=== PATIENT | female | born 2000 | race Caucasian/White ===

== ENCOUNTER → 2020-02-05 09:47 | Outpatient (BNVA) | payer OTHER, SELFPAY | PROVIDERS: Family Provider Family Medicine; PCP Family Medicine; Visit Provider Nurse Practitioner Family | DX: Z11.59 Encounter for screening for other viral diseases (principal); Z20.828 Contact with and (suspected) exposure to other viral communicable diseases; J06.9 Acute upper respiratory infection, unspecified | CPT/HCPCS: 87635 ==

== ENCOUNTER → 2020-06-11 17:56 | Outpatient (BNVA) | payer OTHER, SELFPAY | PROVIDERS: Family Provider Family Medicine; PCP Family Medicine; Visit Provider Nurse Practitioner Family | DX: N39.0 Urinary tract infection, site not specified (principal) | CPT/HCPCS: 81000 ==

== ENCOUNTER 2020-06-21 23:33 | Emergency (ER) | payer OTHER, SELFPAY ==
[2020-06-22 00:06] VITALS: BP 153/99; PULSE 106; RESP 18; TEMP 36.9; O2SAT 99; BMI 26.5
--- NOTE | 2020-06-22 00:16 | ED_ITS ---
HPI - General Adult General: Chief complaint: General Medical Stated complaint: lower back pain Time Seen by Provider: 06/22/20 00:15 Source: patient Mode of arrival: ambulatory Limitations: no limitations History of Present Illness: HPI narrative: Patient was seen Monday at urgent care and was told that she may have a kidney stone. Patient had left flank pain. Patient denied any imaging at that time. Patient was given an injection of Toradol with relief of pain. Patient appears well. Patient appears in moderate pain. Patient takes he takes control routinely. Patient denies any vaginal discharge or abnormal bleeding. Patient's last menstrual cycle was 1 week ago finishing 2 days ago. Review of Systems General: Reports: 10 or more systems reviewed and unremarkable except in HPI and below GI: Reports: abdominal pain PFSH ED PFSH: Social History (Updated 06/11/20 @ 17:46 by Court Perez LPN) Smoking and tobacco status: never smoked Female Reproductive History: Date of last menstrual period: 06/20/20 Physical Exam Const: COMMON NORMALS: no acute distress and patient oriented x3 GENERAL APPEARANCE: cooperative HENMT: COMMON NORMALS: normocephalic, TM's normal bilaterally and Normal external nose present HEAD & SCALP: normal to inspection and normocephalic NOSE: Normal external nose present TYMPANIC MEMBRANE: TM's normal bilaterally MOUTH: Normal oral and palatal mucosa present THROAT: posterior oropharynx normal Eye: GENERAL EYE: appearance normal, both eyes and all related structures Neck/C-Spine: COMMON NORMALS: full ROM Lymph: LYMPHATIC: no lymphadenopathy noted Chest: COMMONS NORMALS: normal inspection of the chest Resp: COMMON NORMALS: normal respiratory effort EFFORT & INSPECTION: Yes able to speak in complete sentences Cardio: COMMON NORMALS: regular rate and regular rhythm RATE: regular rate RHYTHM: regular rhythm GI: PALPATION: Yes Tenderness to palpation present (GI) Details: LLQ Back/Pelvis: COMMON NORMALS: thoracic and lumbar spine normal to inspection GENERAL BACK: Yes CVA tenderness CVA tenderness: left Extremity: COMMON NORMALS: normal to inspection Neuro: COMMON NORMALS: patient oriented x3 and moves all extremities Psych: COMMON NORMALS: mental status grossly normal and cooperative Skin: COMMON NORMALS: no rashes or lesions noted GENERAL SKIN EXAM: no rashes or lesions noted Course Vital Signs: Vital signs: Vital Signs Temperature 98.5 F 06/22/20 00:06 Pulse Rate 91 06/22/20 02:01 Respiratory Rate 17 06/22/20 02:01 Blood Pressure 131/80 06/22/20 02:01 Pulse Oximetry 96 06/22/20 02:01 MDM - General Adult MDM Narrative: Medical decision making narrative: Patient comes in today for complaints of left flank pain radiating into the groin. On exam abdomen was soft with tenderness noted to the left lower quadrant. Patient had positive CVA tenderness. Vital signs were normal. Except for some elevation in blood pressure. Differential diagnosis includes but not limited to constipation, pyelonephritis, renal calculi. CBC and CMP were unremarkable. Urinalysis had blood in it. CT of the abdomen pelvis noted a 3 to 4 mm renal calculi in the distal left ureter. Reviewed exam with patient recommendations for treatment and follow-up. Patient was given a dose of Toradol in the ER with resolution of discomfort. Patient will be continued on medications for pain and ureter relaxation. Patient was recommended to follow-up with Dr. Ambrosio, urologist, for further treatment of renal calculi. Patient reported understanding and agreed to plan. Lab Data: Labs: Lab Results 06/22/20 06/22/20 06/22/20 Range/Units 00:26 00:26 00:26 WBC 10.1 (4.5-13.0) 10^3/ uL RBC 4.34 (4.1-5.3) 10^6/u L Hgb 13.3 (11.5-15.3) g/dL Hct 40.2 (37.0-47.0) % MCV 92.6 (81-99) fL MCH 30.6 (28.0-34.0) pg MCHC 33.1 (30.0-36.0) g/dL RDW 12.8 (12.1-15.1) % Plt Count 397 (130-400) 10^3/c mm MPV 9.2 (7.4-10.4) fL Neut % (Auto) 65.4 % Lymph % (Auto) 26.6 % [place] % (Auto) 5.2 % Eos % (Auto) 2.0 % Baso % (Auto) 0.4 % Neut # (Auto) 6.62 (1.8-8.0) 10^3/u L Lymph # (Auto) 2.7 (1.5-6.5) 10^3/u L [place] # (Auto) 0.5 (0.2-0.9) 10^3/u L Eos # (Auto) 0.2 (0.0-0.8) 10^3/u L Baso # (Auto) 0.0 (0.0-0.1) 10^3/u L Nucleated RBC % (a uto) 0 % Nucleated RBCs # 0.0 /100WBC Sodium 139 (136-145) mmol/L Potassium 3.7 (3.5-5.1) mmol/L Chloride 105 (98-107) mmol/L Carbon Dioxide 23 (22-29) mmol/L Anion Gap 14.7 (5-19) BUN 14 (6-20) mg/dL Creatinine 0.8 (0.5-0.9) mg/dL GFR Calculation 91.4 (90-130) mL/min Glucose 105 (65-115) mg/dL Calculated Osmolal ity 289 (285-295) mOsm/k g Calcium 9.3 (8.5-10.5) mg/dL Total Bilirubin 0.3 (0.15-1.2) mg/dL AST 16 (0-32) U/L ALT 15 (0-33) U/L Alkaline Phosphata se 85 (35-105) IU/L Total Protein 7.5 (6.6-8.7) g/dL Albumin 4.4 (3.5-5.2) g/dL Globulin 3.1 (1.3-4.6) g/dL HCG, Qual Negative (Negative) Urine Color (Yellow) Urine Appearance (CLEAR) Urine pH (5-7) Ur Specific Gravit y (1.005-1.030) Urine Protein (Negative) Urine Glucose (UA) (Normal) Urine Ketones (Negative) Urine Blood (Negative) Urine Nitrate (Negative) Urine Bilirubin (Negative) Urine Urobilinogen (Negative) mg/dL Ur Leukocyte Janene ase (Negative) Urine RBC (0-2) /hpf Urine WBC (0-5) /hpf Ur Squamous Epith Cells (0-5) /hpf Amorphous Sediment Urine Bacteria (NONE) /hpf 06/22/20 Range/Units 00:26 WBC (4.5-13.0) 10^3/ uL RBC (4.1-5.3) 10^6/u L Hgb (11.5-15.3) g/dL Hct (37.0-47.0) % MCV (81-99) fL MCH (28.0-34.0) pg MCHC (30.0-36.0) g/dL RDW (12.1-15.1) % Plt Count (130-400) 10^3/c mm MPV (7.4-10.4) fL Neut % (Auto) % Lymph % (Auto) % [place] % (Auto) % Eos % (Auto) % Baso % (Auto) % Neut # (Auto) (1.8-8.0) 10^3/u L Lymph # (Auto) (1.5-6.5) 10^3/u L [place] # (Auto) (0.2-0.9) 10^3/u L Eos # (Auto) (0.0-0.8) 10^3/u L Baso # (Auto) (0.0-0.1) 10^3/u L Nucleated RBC % (a uto) % Nucleated RBCs # /100WBC Sodium (136-145) mmol/L Potassium (3.5-5.1) mmol/L Chloride (98-107) mmol/L Carbon Dioxide (22-29) mmol/L Anion Gap (5-19) BUN (6-20) mg/dL Creatinine (0.5-0.9) mg/dL GFR Calculation (90-130) mL/min Glucose (65-115) mg/dL Calculated Osmolal ity (285-295) mOsm/k g Calcium (8.5-10.5) mg/dL Total Bilirubin (0.15-1.2) mg/dL AST (0-32) U/L ALT (0-33) U/L Alkaline Phosphata se (35-105) IU/L Total Protein (6.6-8.7) g/dL Albumin (3.5-5.2) g/dL Globulin (1.3-4.6) g/dL HCG, Qual (Negative) Urine Color Yellow (Yellow) Urine Appearance Clear (CLEAR) Urine pH 5 (5-7) Ur Specific Gravit y 1.020 (1.005-1.030) Urine Protein Neg (Negative) Urine Glucose (UA) Norm (Normal) Urine Ketones Negative (Negative) Urine Blood 3+ H (Negative) Urine Nitrate Negative (Negative) Urine Bilirubin Neg (Negative) Urine Urobilinogen Norm (Negative) mg/dL Ur Leukocyte Janene ase Negative (Negative) Urine RBC 15-25 H (0-2) /hpf Urine WBC 0-4 H (0-5) /hpf Ur Squamous Epith Cells 10-15 H (0-5) /hpf Amorphous Sediment Not Reportable Urine Bacteria Trace (NONE) /hpf Discharge Plan Discharge Patient Disposition: Home Clinical Impression: Ureter, calculus Condition: Stable Prescriptions: New hydrocodone-acetaminophen 5-325 mg tablet 1 tab PO Q6H PRN (Reason: pain, moderate) Qty: 14 RF: 0 tamsulosin 0.4 mg capsule 0.4 mg PO DAILY Qty: 10 RF: 0 Discharge Orders: Discharge ED (Routine); Ordered 06/22/20 Ordered By: Ede Santo Referrals: Mainor Abad DO [Primary Care Provider] - Discharge Diet: Usual diet Discharge Activity: Increase activity as tolerated Patient Instructions: Kidney Stones (ED), Opioid Safety Activity Restrictions/Additional Instructions: Strain urine. Take medication as directed for pain and discomfort. Use tamsulosin daily to help relax the ureter so well passes stone. Use hydrocodone and acetaminophen for severe to moderate pain. You can use acetaminophen and ibuprofen for much milder pain. Maintain activity as tolerated. Return to the emergency department for new concerns. Monitor for high fever or uncontrolled pain. Follow-up with urologist for further treatment of kidney stones. Follow- up with primary care as needed. Coding Level of Care Code ED [employer] Technician for Lucy [employer] Exam Comprehensive
--- NOTE | 2020-06-22 00:31 | CTR_ITS ---
PROCEDURE INFORMATION: Exam: CT Abdomen And Pelvis Without Contrast Exam date and time: 06/22/2020 12:41 AM Age: 20 years old Clinical indication: Abdominal pain; Left; Patient HX: C/O L flank pain; Additional info: Left flank pain radiating into groin, TECHNIQUE: Imaging protocol: Computed tomography of the abdomen and pelvis without contrast. Radiation optimization: All CT scans at this facility use at least one of these dose optimization techniques: automated exposure control; mA and/or kV adjustment per patient size (includes targeted exams where dose is matched to clinical indication); or iterative reconstruction. COMPARISON: No relevant prior studies available. RADIATION DOSE METRICS: Total DLP (mGy-cm): 898.18 FINDINGS: Lungs: The lung bases are clear. Liver: Unremarkable. Gallbladder and bile ducts: The gallbladder is contracted. No visible gallstones by CT. No biliary tree dilation. Pancreas: Unremarkable. Spleen: Unremarkable. Adrenal glands: Unremarkable. Kidneys and ureters: Several left intrarenal calculi, largest about 4 cm. Mild left hydronephrosis and hydroureter. There is a 3-4 mm distal left ureteral calculus, about 1 cm from the UVJ. Suspect 2 or 3 very small right intrarenal calculi. No right hydronephrosis or visible right ureteral calculus. Stomach and bowel: There are no CT findings to strongly suggest diverticulitis. Appendix: The appendix is identified, and there are no suspicious findings for appendicitis. No pericecal inflammatory changes are seen. Small amount of high attenuation material in the distal appendix may represent residual contrast from a prior exam, or possibly an appendicolith. Intraperitoneal space: No free air, ascites, or bowel distention. Vasculature: No evidence for abdominal aortic aneurysm. Lymph nodes: No retroperitoneal adenopathy. Urinary bladder: Suspect mild to moderate diffuse urinary bladder wall thickening. While nonspecific, this could indicate evidence for cystitis. Please correlate clinically. Reproductive: Essentially unremarkable for age. Bones/joints: No significant acute finding. Soft tissues: No significant acute finding. CT/CT kidney stone [id number] IMPRESSION: 1. 3-4 mm distal left ureteral calculus, see above details. 2. Mild left hydronephrosis and hydroureter. 3. Bilateral intrarenal calculi. 4. Suspected urinary bladder wall thickening, see above. 5. Other findings discussed above. Radiation Dose CTDIVOL = (mGy): DLP = 898.18 (mGy-cm)
[2020-06-22 00:34] LABS: Basophils % 0.4 %; Eosinophils # 0.2 10^3/uL (0.0-0.8); Hematocrit 40.2 % (37.0-47.0); Hemoglobin 13.3 g/dL (11.5-15.3); Lymphocytes # 2.7 10^3/uL (1.5-6.5); Lymphocytes % 26.6 %; Mean Corpuscular HGB Conc 33.1 g/dL (30.0-36.0); Mean Corpuscular Hemoglobin 30.6 pg (28.0-34.0); Mean Corpuscular Volume 92.6 fL (81-99); Mean Platelet Volume 9.2 fL (7.4-10.4); Monocytes # 0.5 10^3/uL (0.2-0.9); Monocytes % 5.2 %; Neutrophils # 6.62 10^3/uL (1.8-8.0); Neutrophils % 65.4 %; Nucleated Red Blood Cells % 0 %; Platelet Count 397 10^3/cmm (130-400); Red Blood Count 4.34 10^6/uL (4.1-5.3); Red Cell Distribution Width 12.8 % (12.1-15.1); White Blood Count 10.1 10^3/uL (4.5-13.0)
[2020-06-22] MEDS: ondansetron 2 mg/ML SDV 2 mL 4 MG IVP (00:43)
[2020-06-22] MEDS: ketorolac 30 mg/mL INJ 15 MG IVP (00:44)
[2020-06-22 00:47] VITALS: BP 131/86; PULSE 92; RESP 18; O2SAT 97
[2020-06-22 01:00] LABS: HCG, Serum Qual Negative (Negative)
[2020-06-22 01:11] LABS: Alanine Aminotransferase 15 U/L (0-33); Albumin Level 4.4 g/dL (3.5-5.2); Alkaline Phosphatase 85 IU/L (35-105); Anion Gap 14.7 (5-19); Aspartate Amino Transferase 16 U/L (0-32); Blood Urea Nitrogen 14 mg/dL (6-20); Calcium 9.3 mg/dL (8.5-10.5); Carbon Dioxide 23 mmol/L (22-29); Chloride 105 mmol/L (98-107); Globulin 3.1 g/dL (1.3-4.6); Glomerular Filtration Rate 91.4 mL/min (90-130); Glucose 105 mg/dL (65-115); Osmolality Calculated 289 mOsm/kg (285-295); Potassium 3.7 mmol/L (3.5-5.1); Sodium 139 mmol/L (136-145); Total Bilirubin 0.3 mg/dL (0.15-1.2); Total Protein 7.5 g/dL (6.6-8.7)
[2020-06-22 01:29] VITALS: BP 124/94; PULSE 91; RESP 18; O2SAT 95
[2020-06-22 01:49] LABS: Add Urine Microscopic? YES; Bilirubin Urine Neg (Negative); Blood Urine 3+ (Negative); Glucose Urine UA Norm (Normal); Ketones Urine Negative (Negative); Leukocyte Esterase Urine Negative (Negative); Nitrate Urine Negative (Negative); Protein Urine Neg (Negative); Urine Appearance Clear (CLEAR); Urine Color Yellow (Yellow); Urobilinogen Urine Norm (Negative); pH Urine 5 (5-7)
[2020-06-22 01:51] LABS: Add Urine Culture? No; Bacteria Urine TRACE /hpf; RBC Urine 15-25 /hpf (0-2); WBC Urine 0-4 /hpf (0-5)
[2020-06-22 02:01] VITALS: BP 131/80; PULSE 91; RESP 17; O2SAT 96
--- NOTE | 2020-06-22 09:56 | DCPLANNER ---
lead case manager had message to schedule a follow up appointment for patient with Dr. Ambrosio. lead case manager called the office of Dr. Ambrosio, spoke with Shalini, gave clinic patients information. lead case manager was told that patients information would be printed and reviewed. Clinic will call patient with appointment information.
--- NOTE | 2020-06-24 07:51 | DCPLANNER ---
Patient had a follow up appointment scheduled for 06.23.[address] Ambrosio - patient did attend appointment.
== END 2020-06-22 02:09 | disposition home or self-care (01) ==
PROVIDERS: Emergency Provider Nurse Practitioner Family; PCP Family Medicine
DX: N20.1 Calculus of ureter (principal)
CPT/HCPCS: 74176; 80053; 81001; 84703; 85025; 96374; 96375; 99283; J1885; J2405

== ENCOUNTER 2020-06-23 14:53 | Outpatient (CLI) | payer OTHER, SELFPAY ==
--- NOTE | 2020-06-23 15:00 | XR_ITS ---
WS: [id number] XR KUB [id number] REASON FOR EXAM: URETERAL CALCULUS FINDINGS: The small left and right intrarenal calculi identified on the CT scan of 06/22/2020 are not identifiab le on the plain film of the abdomen. The distal left ureteral calculus seen on the CT scan of 06/23/19 21 cannot be identified on the plain film of the abdomen. Lamellated calcification the right lower quadrant which corresponds to an appendicolith on the CT sca n which was not reported. The bowel gas pattern is unremarkable and there is no free air or retroperitoneal air. No mass is identified. XR/XR KUB [id number] IMPRESSION: The urinary tract calculi seen on the CT scan of 06/22/2020 are not identifiable . There is an appendicolith on the CT scan which was not reported which is identi fied as calcification in the right lower quadrant on this examination.
== END 2020-06-23 14:54 | disposition home or self-care (01) ==
LOC: RAD 14:57
PROVIDERS: PCP Family Medicine; Visit Provider Urology
DX: N20.1 Calculus of ureter (principal)
CPT/HCPCS: 74018; 81003

== ENCOUNTER → 2020-09-09 11:44 | Outpatient (BNVA) | payer OTHER, SELFPAY | PROVIDERS: PCP Family Medicine; Visit Provider Registered Nurse Neonatal Intensive Care | DX: N39.0 Urinary tract infection, site not specified (principal); N20.0 Calculus of kidney | CPT/HCPCS: 81000; 87086 ==

== ENCOUNTER → 2020-10-05 09:06 | Outpatient (BNVA) | payer OTHER, SELFPAY | PROVIDERS: PCP Family Medicine; Visit Provider Urology | DX: N20.9 Urinary calculus, unspecified (principal) | CPT/HCPCS: 80048; 81003; 82131; 82140; 82340; 82436; 82507; 82570; 83735; 83935; 84100; 84300; 84550 ==

== ENCOUNTER 2020-11-04 10:37 | Emergency (ER) | payer OTHER, SELFPAY ==
[2020-11-04 13:04] LABS: Hepatitis A Antibody IgM Non-Reactive (Nonreactive); Hepatitis B Core AB, Total Non-Reactive (Nonreactive); Hepatitis B Surface AB 14.6 (11.5-1000); Hepatitis B Surface Antigen Non-Reactive (Nonreactive); Hepatitis C Virus Antibody Non-Reactive (Nonreactive)
[2020-11-05 14:42] LABS: HIV RNA (CPY/ML) <1.30 NOT DETECTED (NOT DETECTED); HIV RNA LOG <20 NOT DETECTED copies/mL (NOT DETECTED)
== END 2020-11-04 11:05 | disposition left against medical advice (07) ==
PROVIDERS: Registered Nurse Neonatal Intensive Care; Emergency Provider Family Medicine; PCP Family Medicine
DX: Z53.21 Procedure and treatment not carried out due to patient leaving prior to being seen by health care provider (principal)
CPT/HCPCS: 36415; 86705; 86706; 86709; 86803; 87340; 87536

== ENCOUNTER 2020-11-16 09:27 | Outpatient (CLI) | payer OTHER, SELFPAY ==
--- NOTE | 2020-11-16 08:00 | XRR_ITS ---
PROCEDURE INFORMATION: Exam: XR Abdomen Exam date and time: 11/16/2020 8:00 AM Age: 20 years old Clinical indication: Condition or disease; Kidney or ureter condition; Other: Urolithisis; Patient HX: History of kidney stones. Follow up of build up on each kidney 3-4 months TECHNIQUE: Imaging protocol: XR of the abdomen. Views: Frontal supine view of the abdomen. 1 View. COMPARISON: CR XR KUB [id number] 06/23/2020 3:13 PM FINDINGS: Gastrointestinal tract: Bowel gas pattern is nonspecific. No mass effect upon the bowel loops. Distal rectal gas. Scattered loops of air filled small bowel none of which are dilated. Bones/joints: No acute process within the osseous structures of the spine or pelvis. Other findings: No appreciable calcifications XR/XR KUB [id number] IMPRESSION: Bowel gas pattern is nonspecific.
== END 2020-11-16 09:28 | disposition home or self-care (01) ==
LOC: RAD 09:30
PROVIDERS: PCP Family Medicine; Visit Provider Urology
DX: N20.9 Urinary calculus, unspecified (principal); Z87.442 Personal history of urinary calculi; N39.0 Urinary tract infection, site not specified
CPT/HCPCS: 74018; 81003

== ENCOUNTER 2020-12-03 10:19 | Outpatient (CLI) | payer OTHER, SELFPAY ==
--- NOTE | 2020-12-03 10:30 | CT_ITS ---
WS: [id number] CT ABDOMEN AND PELVIS WITH CONTRAST HISTORY: R10.11 - Right upper quadrant pain TECHNIQUE: Imaging performed of the abdomen and pelvis with IV contrast. Single phase imaging of the abdomen. Coronal and sagittal reformats are submitted. All CT scans at [facility] use at least one of these dose optimization techniques: automated exposure control; mA and/or kV adjustment per patient size (includes targeted exams where dose is matched to clinical indication); or iterativ e reconstruction. IV CONTRAST: Omnipaque 300; 95 mL IV. Oral contrast: Yes. DLP: 980.77 mGy.cm COMPARISON: 06/22/2020 Lower thorax: Lung bases are clear. Heart is normal size. No hiatal hernia. Liver/biliary system: Normal size with no intrahepatic dilatation. Gallbladder: Normal. No gallstones or wall thickening. No pericholecystic fluid. Pancreas: Normal size pancreas and pancreatic duct. No adjacent inflammation. Spleen: Normal size spleen. No mass or infarct. Adrenal glands: Normal. Right kidney: Normal. Left kidney: Normal. Aorta: Normal. Lymphadenopathy: None. Free fluid: None. GI tract: The appendix is not definitely identified. Mild inflammatory changes in the RIGHT lower yelitza drant correspond to wall thickening of the distal small bowel. There is prominence of the vasa recta. No obstructive pattern. Abdominal wall: Unremarkable abdominal wall. No hernia. Pelvis: RIGHT ovarian cyst measures 2.3 x 1.4 cm. Peripherally enhancing collapsing corpus luteum LEF T ovary. Bones: Unremarkable. CT/CT abdomen pelvis w con* [id number] IMPRESSION: 1. The appendix is not definitely identified within its entirety. No secondary findings of acute appendicitis. If symptoms persist consider repeat evaluation of the appendix. At this time the appendix is not definitely visualized or abn ormal. 2. Mild acute inflammatory process involving the distal small bowel. There is wall thickening and prominence of the vasa recta. Suggest inflammatory bowel di sease or Crohn's disease as possible etiologies. 3. Bilateral ovarian cysts. 4. No free fluid.
[2020-12-03] MEDS: iohexol 300 mg/mL 100 mL Btl IV (11:42)
[2020-12-03] MEDS: iohexol 300 mg/mL 50 mL Btl PO (11:43)
== END 2020-12-03 10:20 | disposition home or self-care (01) ==
PROVIDERS: PCP Family Medicine; Visit Provider Surgery
DX: R10.11 Right upper quadrant pain (principal); N83.202 Unspecified ovarian cyst, left side; N83.201 Unspecified ovarian cyst, right side
CPT/HCPCS: 74177

== ENCOUNTER 2020-12-03 17:42 | Outpatient (CLI) | payer OTHER, SELFPAY ==
[2020-12-03 18:02] LABS: Basophils % 0.1 %; Eosinophils # 0.1 10^3/uL (0.0-0.8); Eosinophils % 0.3 %; Hematocrit 40.9 % (37.0-47.0); Hemoglobin 14.2 g/dL (11.5-15.3); Lymphocytes # 3.1 10^3/uL (1.5-6.5); Lymphocytes % 17.4 %; Mean Corpuscular HGB Conc 34.7 g/dL (30.0-36.0); Mean Corpuscular Hemoglobin 31.5 pg (28.0-34.0); Mean Corpuscular Volume 90.7 fl (81-99); Mean Platelet Volume 9.1 fL (7.4-10.4); Monocytes # 1.6 10^3/uL (0.2-0.9); Monocytes % 8.7 %; Neutrophils # 13.08 10^3/uL (1.8-8.0); Neutrophils % 73.2 %; Nucleated Red Blood Cells % 0 %; Platelet Count 362 10^3/cmm (130-400); Red Blood Count 4.51 10^6/uL (4.1-5.3); Red Cell Distribution Width 11.9 % (12.1-15.1); White Blood Count 17.9 10^3/uL (4.5-13.0)
[2020-12-03 18:17] LABS: Alanine Aminotransferase 8 U/L (0-33); Albumin Level 4.3 g/dL (3.5-5.2); Alkaline Phosphatase 68 IU/L (35-105); Anion Gap 14.3 (5-19); Aspartate Amino Transferase 11 U/L (0-32); Blood Urea Nitrogen 7 mg/dL (6-20); C Reactive Protein 43.9 mg/L (0.0-4.9); Calcium 9.2 mg/dL (8.5-10.5); Carbon Dioxide 25 mmol/L (22-29); Chloride 101 mmol/L (98-107); Globulin 3.3 g/dL (1.3-4.6); Glomerular Filtration Rate 127.5 mL/min (90-130); Glucose 110 mg/dL (65-115); Osmolality Calculated 281 mOsm/kg (285-295); Potassium 4.3 mmol/L (3.5-5.1); Sodium 136 mmol/L (136-145); Total Bilirubin 1.2 mg/dL (0.15-1.2); Total Protein 7.6 g/dL (6.6-8.7)
[2020-12-03 20:02] LABS: Erythrocyte Sedimentation Rate 24 mm/hr (0-15)
== END 2020-12-03 17:43 | disposition home or self-care (01) ==
PROVIDERS: PCP Family Medicine; Visit Provider Surgery
DX: R10.31 Right lower quadrant pain (principal)
CPT/HCPCS: 36415; 80053; 85025; 85651; 86140

== ENCOUNTER → 2021-11-21 14:20 | Outpatient (BNVA) | payer OTHER, SELFPAY | PROVIDERS: PCP Family Medicine; Visit Provider Nurse Practitioner Family | DX: R39.9 Unspecified symptoms and signs involving the genitourinary system (principal); R30.0 Dysuria | CPT/HCPCS: 81000 ==

== ENCOUNTER → 2023-01-05 09:30 | Outpatient (BNVA) | payer OTHER, SELFPAY | PROVIDERS: PCP Family Medicine; Visit Provider Nurse Practitioner Women's Health | DX: N92.6 Irregular menstruation, unspecified (principal) | CPT/HCPCS: 81025 ==

== ENCOUNTER → 2023-01-12 12:15 | Outpatient (BNVA) | payer OTHER, SELFPAY | PROVIDERS: PCP Family Medicine; Visit Provider Nurse Practitioner Women's Health | DX: Z36.87 Encounter for antenatal screening for uncertain dates (principal) | CPT/HCPCS: 76801; 80307; 84315; 85027; 86592; 86762; 86803; 86850; 86900; 87086; 87340; 87806 ==

== ENCOUNTER → 2023-02-02 10:22 | Outpatient (BNVA) | payer OTHER, SELFPAY | PROVIDERS: PCP Family Medicine; Visit Provider Obstetrics & Gynecology | DX: Z34.00 Encounter for supervision of normal first pregnancy, unspecified trimester (principal) | CPT/HCPCS: 84315; 87491; 87591; 88175 ==

== ENCOUNTER → 2023-03-28 14:29 | Outpatient (BNVA) | payer OTHER, SELFPAY | PROVIDERS: PCP Family Medicine; Visit Provider Nurse Practitioner Women's Health | DX: Z34.02 Encounter for supervision of normal first pregnancy, second trimester (principal) | CPT/HCPCS: 76805 ==

== ENCOUNTER → 2023-04-25 13:30 | Outpatient (BNVA) | payer OTHER, SELFPAY | PROVIDERS: PCP Family Medicine; Visit Provider Nurse Practitioner Women's Health | DX: Z36.89 Encounter for other specified antenatal screening (principal) | CPT/HCPCS: 76816 ==

== ENCOUNTER → 2023-04-27 10:06 | Outpatient (BNVA) | payer OTHER, SELFPAY | PROVIDERS: PCP Family Medicine; Visit Provider Nurse Practitioner Women's Health | DX: Z34.80 Encounter for supervision of other normal pregnancy, unspecified trimester (principal) | CPT/HCPCS: 82950; 84315 ==

== ENCOUNTER 2023-04-29 10:45 | Outpatient (CLI) | payer OTHER, SELFPAY ==
[2023-04-29 12:29] LABS: Glucose Fasting Gestational 62 mg/dL (65-115)
[2023-04-29 12:42] LABS: Glucose 1 Hour 155 mg/dL
[2023-04-29 13:53] LABS: Glucose 2 Hour 170 mg/dL
[2023-04-29 14:19] LABS: Glucose 3 Hour 103 mg/dL
[2023-04-29 14:20] LABS: Estmated Average Glucose 80; Hemoglobin A1C 4.4 % (4.0-6.0)
== END 2023-04-29 10:46 | disposition home or self-care (01) ==
LOC: OPOB 11:40
PROVIDERS: PCP Family Medicine; Visit Provider Obstetrics & Gynecology
DX: Z34.90 Encounter for supervision of normal pregnancy, unspecified, unspecified trimester (principal)
CPT/HCPCS: 36415; 82951; 82952; 83036

== ENCOUNTER → 2023-05-18 11:28 | Outpatient (BNVA) | payer OTHER, SELFPAY | PROVIDERS: PCP Family Medicine; Visit Provider Obstetrics & Gynecology | DX: O26.892 Other specified pregnancy related conditions, second trimester (principal); Z3A.27 27 weeks gestation of pregnancy | CPT/HCPCS: 76815 ==

== ENCOUNTER → 2023-05-22 14:15 | Outpatient (BNVA) | payer OTHER, SELFPAY | PROVIDERS: PCP Family Medicine; Visit Provider Obstetrics & Gynecology | DX: Z34.90 Encounter for supervision of normal pregnancy, unspecified, unspecified trimester (principal) | CPT/HCPCS: 84315; 85025 ==

== ENCOUNTER → 2023-06-22 11:08 | Outpatient (BNVA) | payer OTHER, SELFPAY | PROVIDERS: PCP Family Medicine; Visit Provider Obstetrics & Gynecology | DX: O26.893 Other specified pregnancy related conditions, third trimester (principal); Z3A.32 32 weeks gestation of pregnancy | CPT/HCPCS: 76815 ==

== ENCOUNTER → 2023-07-04 08:11 | Outpatient (BNVA) | payer OTHER, SELFPAY | PROVIDERS: PCP Family Medicine; Visit Provider Nurse Practitioner Women's Health | DX: O26.892 Other specified pregnancy related conditions, second trimester (principal); Z34.02 Encounter for supervision of normal first pregnancy, second trimester; L29.9 Pruritus, unspecified | CPT/HCPCS: 80053; 82542; 84315 ==

== ENCOUNTER → 2023-07-06 07:58 | Outpatient (BNVA) | payer OTHER, SELFPAY | PROVIDERS: PCP Family Medicine; Referring Provider Obstetrics & Gynecology; Visit Provider Obstetrics & Gynecology | DX: O26.893 Other specified pregnancy related conditions, third trimester (principal); Z3A.34 34 weeks gestation of pregnancy | CPT/HCPCS: 76819 ==

== ENCOUNTER 2023-07-08 09:12 | Outpatient (CLI) | payer OTHER, SELFPAY ==
[2023-07-08] VITALS (7 sets, daily range): BP systolic 109–147; BP diastolic 59–102; PULSE 100–122; RESP 16–18; BMI 28.3
--- NOTE | 2023-07-08 09:15 | USR_ITS ---
PROCEDURE INFORMATION: Exam: US Retroperitoneal; Complete; Kidneys and Bladder Exam date and time: 07/08/2023 9:41 AM Age: 23 years old Clinical indication: Other: Right back pain; ; Additional info: Severe right back pain, please evaluate maternal kidneys TECHNIQUE: Imaging protocol: Real-time ultrasound of the retroperitoneum with image documentation. Complete exam focused on the kidneys and bladder. COMPARISON: [place] [id number] 04/25/2023 1:34 PM FINDINGS: Right kidney: There is mild right-sided hydroureteronephrosis. No stone identified. Left kidney: Normal. No stones. No hydronephrosis. Urinary bladder: There is increased thickening and trabeculation of the urinary bladder wall. Ureteral jets were not seen. US/US renal BI* [id number] IMPRESSION: 1. Mild right-sided hydronephrosis. 2. Increased thickening and trabeculation of the urinary bladder wall, which can be seen with neurogenic bladder or changes of chronic bladder outlet obstruction. Clinical correlation recommended.
[2023-07-08] MEDS: NIFEdipine 10 mg Capsule 30 MG PO (09:47)
[2023-07-08 10:00] LABS: Add Urine Culture? No; Bacteria Urine 1+ /hpf; Bilirubin Urine Neg (Negative); Blood Urine Neg (Negative); Glucose Urine UA Norm (Normal); Ketones Urine Negative (Negative); Leukocyte Esterase Urine 2+ (Negative); Nitrate Urine Negative (Negative); Protein Urine Neg (Negative); Specific Gravity, Urine 1.005 (1.005-1.030); Squamous Epithelial Cell Urine 0-4 /hpf (0-5); Urine Appearance Clear (CLEAR); Urine Color Straw (Yellow); Urobilinogen Urine Norm (Negative); pH Urine 7 (5-7)
[2023-07-08] MEDS: HYDROcodone-acetaminophen 5-325 mg Tablet 1 TAB PO (10:35)
[2023-07-08] MEDS: ondansetron 4 MG Tablet PO (10:35)
[2023-07-08] MEDS: nitrofurantoin SR (BID) 100 mg Capsule PO (10:35)
== END 2023-07-08 10:35 | disposition home or self-care (01) ==
LOC: OPOB 09:13 → OBGYN 09:13
PROVIDERS: PCP Family Medicine; Visit Provider Obstetrics & Gynecology
DX: Z46.89 Encounter for fitting and adjustment of other specified devices (principal); M54.9 Dorsalgia, unspecified; N13.30 Unspecified hydronephrosis
CPT/HCPCS: 59025; 76770; 81001; 99211; Q0162

== ENCOUNTER → 2023-07-13 11:59 | Outpatient (BNVA) | payer OTHER, SELFPAY | PROVIDERS: PCP Family Medicine; Visit Provider Obstetrics & Gynecology | DX: O99.891 Other specified diseases and conditions complicating pregnancy (principal) | CPT/HCPCS: 76819 ==

== ENCOUNTER 2023-07-20 08:31 | Outpatient (CLI) | payer OTHER, SELFPAY ==
[2023-07-20 08:30] VITALS: BMI 29.2
[2023-07-20 08:52] VITALS: BP 126/91; PULSE 114
[2023-07-20 08:56] LABS: Add Urine Microscopic? NO; Charge for UA Resulting for Rev
[2023-07-20 09:02] LABS: Bilirubin Urine Neg (Negative); Blood Urine Neg (Negative); Glucose Urine UA Norm (Normal); Ketones Urine Negative (Negative); Leukocyte Esterase Urine Negative (Negative); Nitrate Urine Negative (Negative); Protein Urine Neg (Negative); Specific Gravity, Urine 1.015 (1.005-1.030); Urine Appearance Clear (CLEAR); Urine Color Yellow (Yellow); Urobilinogen Urine Norm (Negative); pH Urine 7 (5-7)
[2023-07-20 09:03] LABS: Basophils % 0.2 %; Eosinophils # 0.2 10^3/uL (0.0-0.8); Eosinophils % 2.7 %; Lymphocytes # 2.3 10^3/uL (0.8-4.8); Lymphocytes % 27.9 %; Mean Corpuscular HGB Conc 32.1 g/dL (30-55); Mean Corpuscular Hemoglobin 29.4 pg (27-33); Mean Corpuscular Volume 91.4 fl (85-98); Monocytes # 0.5 10^3/uL (0.2-0.9); Monocytes % 5.7 %; Neutrophils # 5.08 10^3/uL (1.8-7.7); Neutrophils % 62.9 %; Nucleated Red Blood Cells % 0 %; Platelet Count 300 10^3/cmm (157-399); Red Blood Count 3.61 10^6/uL (3.85-5.65); Red Cell Distribution Width 13.2 % (12.1-15.1); White Blood Count 8.09 10^3/uL (3.29-11.43)
[2023-07-20 09:12] VITALS: BP 136/104; PULSE 113
[2023-07-20 09:23] LABS: Urine Creatinine 54 mg/dL (28-217); Urine Protein Random 11 mg/dL
[2023-07-20 09:26] LABS: Alanine Aminotransferase 16 U/L (0-33); Albumin Level 3.2 g/dL (3.5-5.2); Alkaline Phosphatase 157 U/L (35-105); Anion Gap 14.7 (5-19); Aspartate Amino Transferase 18 U/L (0-32); Blood Urea Nitrogen 5 mg/dL (6-20); Carbon Dioxide 20 mmol/L (22-29); Chloride 108 mmol/L (98-107); Creatinine Clr Calc Pharmacy 130.7648; Globulin 3.5 g/dL (1.3-4.6); Glomerular Filtration Rate 123.9 mL/min (90-130); Glucose 85 mg/dL (65-115); Osmolality Calculated 285 mOsm/kg (285-295); Potassium 3.7 mmol/L (3.5-5.1); Sodium 139 mmol/L (136-145); Total Bilirubin 0.5 mg/dL (0.15-1.2); Total Protein 6.7 g/dL (6.6-8.7); Uric Acid 4.5 mg/dL (2.4-5.7)
[2023-07-20 09:32] VITALS: BP 144/108; PULSE 101
== END 2023-07-20 09:43 | disposition home or self-care (01) ==
LOC: OPOB 08:31 → OBGYN 08:32
PROVIDERS: PCP Family Medicine; Visit Provider Obstetrics & Gynecology
DX: O16.9 Unspecified maternal hypertension, unspecified trimester (principal); Z3A.00 Weeks of gestation of pregnancy not specified
CPT/HCPCS: 36415; 76815; 76819; 80053; 81003; 82570; 84156; 84550; 85025; 99211

== ENCOUNTER → 2023-07-21 16:00 | Outpatient (BNVA) | payer OTHER, SELFPAY | PROVIDERS: PCP Family Medicine; Visit Provider Obstetrics & Gynecology | DX: O26.892 Other specified pregnancy related conditions, second trimester (principal); Z34.02 Encounter for supervision of normal first pregnancy, second trimester | CPT/HCPCS: 84315; 87081 ==

== ENCOUNTER 2023-07-22 08:32 | Outpatient (CLI) | payer OTHER, SELFPAY ==
--- NOTE | 2023-07-22 08:33 | USR_ITS ---
PROCEDURE INFORMATION: Exam: US Biophysical Profile Without Non-Stress Test Exam date and time: 07/22/2023 9:11 AM Age: 23 years old Clinical indication: Condition or disease; Other: Maternal hypertension; ; Additional info: well being, maternal high blood pressure TECHNIQUE: Imaging protocol: US biophysical profile without non-stress testing. COMPARISON: US OB lmt w/ BPP wo NST 07/20/2023 8:04 AM FINDINGS: heart rate: 161 bpm BIOPHYSICAL PROFILE: breathing movement (BPP): 2 out of 2. body movement (BPP): 2 out of 2. tone (BPP): 2 out of 2. Amniotic fluid (BPP): 2 out of 2. Total biophysical profile score: 8/8 MATERNAL ANATOMY: Cervix: Cervical length measures 3.4 cm. US/US OB BPP wo NST [id number] IMPRESSION: 1. Biophysical profile score 8/8 2. Unremarkable cervix 3. Clinical gestational age 36 weeks 5 days UVALDO 08/14/2023. 4. Unremarkable anatomic evaluation.
[2023-07-22 08:36] VITALS: BMI 29.2
[2023-07-22 08:41] VITALS: BP 139/95; PULSE 115
[2023-07-22 08:56] LABS: Add Urine Microscopic? NO; Charge for UA Resulting for Rev
[2023-07-22 08:58] LABS: Basophils % 0.2 %; Eosinophils # 0.2 10^3/uL (0.0-0.8); Lymphocytes # 2.4 10^3/uL (0.8-4.8); Lymphocytes % 28.9 %; Mean Corpuscular HGB Conc 31.9 g/dL (30-55); Mean Corpuscular Hemoglobin 29.1 pg (27-33); Mean Corpuscular Volume 91.2 fl (85-98); Mean Platelet Volume 9.9 fL (7.4-10.4); Monocytes # 0.4 10^3/uL (0.2-0.9); Monocytes % 5.4 %; Neutrophils # 5.18 10^3/uL (1.8-7.7); Neutrophils % 63.1 %; Nucleated Red Blood Cells % 0 %; Platelet Count 292 10^3/cmm (157-399); Red Blood Count 3.51 10^6/uL (3.85-5.65); Red Cell Distribution Width 13.2 % (12.1-15.1)
[2023-07-22 09:02] VITALS: BP 136/93; PULSE 111
[2023-07-22 09:04] LABS: Bilirubin Urine Neg (Negative); Blood Urine Neg (Negative); Glucose Urine UA Norm (Normal); Ketones Urine Negative (Negative); Leukocyte Esterase Urine Negative (Negative); Nitrate Urine Negative (Negative); Protein Urine Neg (Negative); Specific Gravity, Urine 1.015 (1.005-1.030); Urine Appearance Clear (CLEAR); Urine Color Straw (Yellow); Urobilinogen Urine Norm (Negative); pH Urine 7 (5-7)
[2023-07-22 09:15] LABS: Alanine Aminotransferase 14 U/L (0-33); Albumin Level 3.2 g/dL (3.5-5.2); Alkaline Phosphatase 154 U/L (35-105); Anion Gap 14.3 (5-19); Aspartate Amino Transferase 18 U/L (0-32); Blood Urea Nitrogen 6 mg/dL (6-20); Calcium 8.8 mg/dL (8.5-10.5); Carbon Dioxide 22 mmol/L (22-29); Chloride 104 mmol/L (98-107); Creatinine Clr Calc Pharmacy 130.7648; Globulin 3.3 g/dL (1.3-4.6); Glomerular Filtration Rate 123.9 mL/min (90-130); Glucose 94 mg/dL (65-115); Osmolality Calculated 281 mOsm/kg (285-295); Potassium 3.3 mmol/L (3.5-5.1); Sodium 137 mmol/L (136-145); Total Bilirubin 0.4 mg/dL (0.15-1.2); Total Protein 6.5 g/dL (6.6-8.7); Uric Acid 4.2 mg/dL (2.4-5.7)
[2023-07-22 09:16] LABS: Urine Creatinine 51 mg/dL (28-217); Urine Protein Random 6 mg/dL
[2023-07-22 09:26] LABS: UPRO/UCREAT Ratio 0.12 mg/mg CR
[2023-07-22 09:42] VITALS: BP 136/93; PULSE 111
== END 2023-07-22 09:30 | disposition home or self-care (01) ==
LOC: OPOB 08:32 → OBGYN 08:37
PROVIDERS: Absent Provider Obstetrics & Gynecology; PCP Family Medicine; Visit Provider Obstetrics & Gynecology
DX: O26.899 Other specified pregnancy related conditions, unspecified trimester (principal); Z3A.00 Weeks of gestation of pregnancy not specified
CPT/HCPCS: 36415; 59025; 76819; 80053; 81003; 82570; 84156; 84550; 85025; 99211

== ENCOUNTER → 2023-07-27 10:21 | Outpatient (BNVA) | payer OTHER, SELFPAY | PROVIDERS: PCP Family Medicine; Visit Provider Obstetrics & Gynecology | DX: O09.93 Supervision of high risk pregnancy, unspecified, third trimester (principal); Z3A.37 37 weeks gestation of pregnancy | CPT/HCPCS: 76819; 84315 ==

== ENCOUNTER 2023-07-28 20:37 | Outpatient (CLI) | payer OTHER, SELFPAY ==
[2023-07-28] VITALS (11 sets, daily range): BP systolic 109–125; BP diastolic 78–94; PULSE 92–136; RESP 16; TEMP 35.7–35.8; O2SAT 97–98; BMI 29.2
[2023-07-28 21:22] LABS: Add Urine Microscopic? NO; Charge for UA Resulting for Rev
[2023-07-28 21:28] LABS: Basophils % 0.1 %; Eosinophils # 0.2 10^3/uL (0.0-0.8); Eosinophils % 2.7 %; Hematocrit 29.6 % (36-47); Lymphocytes # 2.9 10^3/uL (0.8-4.8); Lymphocytes % 32.7 %; Mean Corpuscular HGB Conc 32.8 g/dL (30-55); Mean Corpuscular Volume 88.4 fl (85-98); Mean Platelet Volume 10.2 fL (7.4-10.4); Monocytes # 0.6 10^3/uL (0.2-0.9); Monocytes % 6.5 %; Neutrophils # 5.11 10^3/uL (1.8-7.7); Neutrophils % 57.3 %; Nucleated Red Blood Cells % 0 %; Platelet Count 267 10^3/cmm (157-399); Red Blood Count 3.35 10^6/uL (3.85-5.65); Red Cell Distribution Width 13.8 % (12.1-15.1); White Blood Count 8.92 10^3/uL (3.29-11.43)
[2023-07-28 21:30] LABS: Bilirubin Urine Neg (Negative); Blood Urine Neg (Negative); Glucose Urine UA Norm (Normal); Ketones Urine Negative (Negative); Leukocyte Esterase Urine Negative (Negative); Nitrate Urine Negative (Negative); Protein Urine Neg (Negative); Specific Gravity, Urine 1.005 (1.005-1.030); Urine Appearance Clear (CLEAR); Urine Color Straw (Yellow); Urobilinogen Urine Neg (Negative); pH Urine 6.5 (5-7)
[2023-07-28 21:41] LABS: Alanine Aminotransferase 13 U/L (0-33); Albumin Level 3.2 g/dL (3.5-5.2); Alkaline Phosphatase 146 U/L (35-105); Anion Gap 15.7 (5-19); Aspartate Amino Transferase 14 U/L (0-32); Blood Urea Nitrogen 8 mg/dL (6-20); Calcium 8.6 mg/dL (8.5-10.5); Carbon Dioxide 19 mmol/L (22-29); Chloride 103 mmol/L (98-107); Creatinine Clr Calc Pharmacy 112.0841; Glomerular Filtration Rate 103.7 mL/min (90-130); Glucose 140 mg/dL (65-115); Osmolality Calculated 279 mOsm/kg (285-295); Potassium 3.7 mmol/L (3.5-5.1); Sodium 134 mmol/L (136-145); Total Bilirubin 0.3 mg/dL (0.15-1.2); Total Protein 6.2 g/dL (6.6-8.7); Uric Acid 4.7 mg/dL (2.4-5.7)
[2023-07-28 21:43] LABS: Urine Creatinine 35 mg/dL (28-217); Urine Protein Random 5 mg/dL
[2023-07-28 21:45] LABS: UPRO/UCREAT Ratio 0.14 mg/mg CR
== END 2023-07-28 21:55 | disposition home or self-care (01) ==
LOC: OPOB 20:38 → OBGYN 20:39
PROVIDERS: PCP Family Medicine; Visit Provider Obstetrics & Gynecology
DX: O16.9 Unspecified maternal hypertension, unspecified trimester (principal); Z3A.00 Weeks of gestation of pregnancy not specified; R51.9 Headache, unspecified
CPT/HCPCS: 36415; 59025; 80053; 81003; 82570; 84156; 84550; 85025; 99211

== ENCOUNTER → 2023-08-03 07:59 | Outpatient (BNVA) | payer OTHER, SELFPAY | PROVIDERS: PCP Family Medicine; Visit Provider Obstetrics & Gynecology | DX: O26.893 Other specified pregnancy related conditions, third trimester (principal); Z3A.38 38 weeks gestation of pregnancy | CPT/HCPCS: 76819 ==

== ENCOUNTER 2023-08-03 17:33 | Inpatient (IN) | payer OTHER, SELFPAY ==
[2023-08-03] VITALS (13 sets, daily range): BP systolic 125–162; BP diastolic 79–108; PULSE 93–114; BMI 29.5
[2023-08-03 18:16] LABS: Basophils % 0.2 %; Eosinophils # 0.1 10^3/uL (0.0-0.8); Eosinophils % 0.9 %; Hematocrit 31.1 % (36-47); Lymphocytes # 2.8 10^3/uL (0.8-4.8); Mean Corpuscular HGB Conc 32.5 g/dL (30-55); Mean Corpuscular Hemoglobin 28.4 pg (27-33); Mean Corpuscular Volume 87.4 fl (85-98); Mean Platelet Volume 10.5 fL (7.4-10.4); Monocytes # 0.6 10^3/uL (0.2-0.9); Monocytes % 5.4 %; Neutrophils # 6.71 10^3/uL (1.8-7.7); Neutrophils % 65.8 %; Nucleated Red Blood Cells % 0 %; Platelet Count 281 10^3/cmm (157-399); Red Blood Count 3.56 10^6/uL (3.85-5.65); Red Cell Distribution Width 13.8 % (12.1-15.1); White Blood Count 10.19 10^3/uL (3.29-11.43)
[2023-08-03] MEDS: miSOPROStol 100 mcg tablet 25 MCG VAGINAL ×2 (18:25→22:29)
[2023-08-03 19:16] LABS: Add Urine Microscopic? NO; Charge for UA Resulting for Rev
[2023-08-03 19:39] LABS: Urine Creatinine 30 mg/dL (28-217); Urine Protein Random 5 mg/dL
[2023-08-03 19:40] LABS: Bilirubin Urine Neg (Negative); Blood Urine Neg (Negative); Glucose Urine UA Norm (Normal); Ketones Urine Negative (Negative); Leukocyte Esterase Urine Negative (Negative); Nitrate Urine Negative (Negative); Protein Urine Neg (Negative); Urine Appearance Clear (CLEAR); Urine Color Light yellow (Yellow); Urobilinogen Urine Norm (Negative); pH Urine 7 (5-7)
[2023-08-03 19:41] LABS: UPRO/UCREAT Ratio 0.17 mg/mg CR
[2023-08-04] VITALS (111 sets, daily range): BP systolic 77–172; BP diastolic 46–109; PULSE 77–122; RESP 16–18; TEMP 36.6–36.7; O2SAT 82–100
[2023-08-04] MEDS: miSOPROStol 100 mcg tablet 25 MCG VAGINAL ×3 (02:30→12:28)
[2023-08-04] MEDS: dextrose 5%-lactated ringers 1,000 ML 125 ML IV (06:48)
[2023-08-04] MEDS: hyDROXYzine 25 mg Capsule 50 MG PO (07:33)
--- NOTE | 2023-08-04 10:19 | PM.OPHPUD ---
Labor & Delivery H&P Update Date of Procedure: August 04, 2023 Date H&P Performed: 08/03/23 H&P update information: I have reviewed H&P completed within last 30 days, I have examined patient prior to procedure and No changes to prior documentation Admission Diagnosis:
--- NOTE | 2023-08-04 14:47 | ANES.PREANE2 ---
Pre-Anesthetic Assessment Height/Weight: Height 1.55 m Weight 70.76 kg Pulse Resp BP O2 Del Method 106 H 16 135/91 Room Air 08/04/23 14:28 08/04/23 11:18 08/04/23 14:28 08/03/23 17:53 Familial anesthetic complications: None Was Beta Darian taken within 24 hours: Yes Was Clonidine taken within 24 hours: N/A Last intake: Solid food 2300 Social No alcohol and No tobacco Exam alert, oriented x 3, clear to auscultation bilaterally and regular rate & rhythm Airway Submandibular: within normal limits Cervical ROM: within normal limits Mallampati: Class II Dentition: full History/ROS No significant history except as noted and No significant complaints Pulmonary Asthma (Twice daily inhaler) CV/HEM Hypertension (Gestational) None reported Hepatic None reported GI None reported Metabolic None reported Musc/skel None reported Neuropsych None reported Anesthetic Plan ASA status: 2 Anesthesia: Anesthesia Evaluation, General and Regional (specify below) (Epidural) Risk of > 500 ml blood loss (7ml/kg in children): Yes, adequate IV access and fluids planned Medications/Allergies Home Medications Medication Instructions Recorded Confirmed Last Taken Type OTG-eids-VF-omega 3-fat com #1 27 1 cap PO DAILY 01/05/23 08/03/23 07/28/23 History mg-1 mg-300 mg capsule albuterol sulfate 90 mcg/actuation 2 puff inhalation Q6H PRN 03/16/23 08/03/23 Unknown Rx aerosol inhaler shortness of breath or wheezing #6.7 grams budesonide-formoterol HFA 80 1 inh inhalation BID #10.2 grams 03/16/23 08/03/23 Unknown Rx mcg-4.5 mcg/actuation aerosol inhaler acetaminophen 500 mg tablet 1,000 mg PO PRN PRN Pain 07/20/23 08/03/23 07/28/23 19:30 History labetalol 100 mg tablet 100 mg PO BID #30 tabs 07/21/23 08/03/23 07/28/23 19:30 Rx Allergies Allergy/AdvReac Type Severity Reaction Status Date / Time nut - unspecified Allergy Unknown Unknown Verified 08/03/23 14:27 Current Medications Generic Name Dose Route Start Last Admin Trade Name Freq PRN Reason Stop Dose Admin Hydroxyzine Pamoate 50 mg 08/03/23 17:35 08/04/23 07:33 Hydroxyzine 25 Mg Capsule PO 50 mg QID PRN Administration sleep, agitation or itching Dextrose/Lactated Ringer's 1,000 mls @ 125 mls/hr 08/03/23 17:35 08/04/23 06:48 Dextrose 5%-Lactated Ringers IV 125 mls/hr .Q8H PRN Administration per label comments PFSH Anesthesia Medical History Environmental allergies hx of allergy injections as a child History of asthma initially childhood asthma Urolithiasis Surgical History No pertinent past surgical history Family History Father Hypertension Grandmother Hypertension MGM Denies family history of Diabetes CAD (coronary artery disease) Clotting disorder Hyperlipidemia Chronic kidney disease (CKD) Anesthesia complication Bleeding disorder Family history of premature coronary artery disease Lung disease Cancer Stroke Female Reproductive History : 1 Data Anesthesia 08/03/23 18:01 Short CBC 08/03/23 Range/Units 18:01 WBC 10.19 (3.29-11.43) 10^3/uL Hgb 10.10 L (11.27-16.99) g/dL Hct 31.1 L (36-47) % MCV 87.4 (85-98) fl Plt Count 281 (157-399) 10^3/cmm Neut % (Auto) 65.8 % Neut # (Auto) 6.71 (1.8-7.7) 10^3/uL Urine 08/03/23 Range/Units 19:05 Urine Color Light yellow (Yellow) Urine Appearance Clear (CLEAR) Urine pH 7 (5-7) Ur Specific [place] 1.000 L (1.005-1.030) Urine Protein Neg (Negative) Urine Glucose (UA) Norm (Normal) Urine Ketones Negative (Negative) Urine Nitrate Negative (Negative) Urine Bilirubin Neg (Negative) Ur Leukocyte Esterase Negative (Negative) Blood Bank 08/03/23 18:01 Blood Type O Positive Rho(D) Type Rh positive Antibody Screen Negative Cardiac Studies: No Data to Display
[2023-08-04] MEDS: oxytocin 30 UNIT/500 ML BAG IV (16:41)
[2023-08-04] MEDS: lactated ringers 1,000 ML 999 ML IV ×2 (20:47→22:36)
[2023-08-04] MEDS: ROPivacaine syringe 100 MG/50 ML SYRINGE 10 MG EPIDURAL (22:08)
[2023-08-04] MEDS: ondansetron 2 mg/ML SDV 2 mL 4 MG IVP (22:13)
--- NOTE | 2023-08-04 22:27 | ANES.PROC ---
Anesthesia Procedures Procedure/Date: 08/04/23 Epidural: Time Out Performed: Yes Consents Signed: Procedure Consent and NPO Consent Consent: requested by attending/covering physician, from patient, risks and benefits reviewed and patient agrees to proceed Lumbar Level: L2-L3 Epidural position: sitting Epidural procedure: sterile prep of area (betadine), 1% lidocaine to numb the area (3 mLs), neg for paresthesia, test dose given, 1.5% xylocaine 1:200k epi (3 mL/2 mL), 0.2% Ropivacaine bolus ml (5 mLs), placed PCEA, no systemic response, sterile dressing applied, L.U.D. no apparent complications and 0.2% Ropiavacaine @ mls/hr (10 mLs/hr) Additional Comments: Attempt x2. RAMBO 5cm, catheter threaded to 10cm. 100mcg fentanyl given via epidural catheter. After initial LA bolus, patient became hypotensive. 100mcg phenylephrine x3 given via IV, fluid bolus started, and epidural infusion stopped. BP stabilized. Ropivacaine infusion restarted at 10 mL/hr and fluid bolus decreased to normal infusion rate (125 mL/hr). BP decreased from 105/54 to 93/55. 50 mg ephedrine given IM in the left thigh. BP improved to 118/65. Monitored patient for 40 minutes after IM ephedrine. BP remained stable and patient lying comfortable in bed. Informed RN to call for any other BP issues.
[2023-08-05] VITALS (118 sets, daily range): BP systolic 103–147; BP diastolic 55–105; PULSE 92–151; RESP 16; TEMP 36–37.4; O2SAT 97–100
[2023-08-05 00:40] LABS: Alanine Aminotransferase 15 U/L (0-33); Albumin Level 3.1 g/dL (3.5-5.2); Alkaline Phosphatase 164 U/L (35-105); Anion Gap 15.5 (5-19); Aspartate Amino Transferase 18 U/L (0-32); Blood Urea Nitrogen 8 mg/dL (6-20); Calcium 8.8 mg/dL (8.5-10.5); Carbon Dioxide 19 mmol/L (22-29); Chloride 105 mmol/L (98-107); Creatinine Clr Calc Pharmacy 131.1819; Globulin 3.5 g/dL (1.3-4.6); Glomerular Filtration Rate 123.9 mL/min (90-130); Glucose 81 mg/dL (65-115); Osmolality Calculated 277 mOsm/kg (285-295); Potassium 4.5 mmol/L (3.5-5.1); Sodium 135 mmol/L (136-145); Total Bilirubin 0.3 mg/dL (0.15-1.2); Total Protein 6.6 g/dL (6.6-8.7); Uric Acid 4.4 mg/dL (2.4-5.7)
[2023-08-05] MEDS: ROPivacaine syringe 100 MG/50 ML SYRINGE 10 MG EPIDURAL ×6 (02:59→19:15)
[2023-08-05] MEDS: dextrose 5%-lactated ringers 1,000 ML 125 ML IV (08:05)
--- NOTE | 2023-08-05 12:10 | ANES.PROC ---
Anesthesia Procedures Procedure/Date: 08/05/23 Procedure Narrative: Called to bedside by RN- patient stating she is feeling pain in her back and right side with contractions, the pain is pinching in nature. Tested block with alcohol, T10 block on left side and T12 block on right side. Discussed all options with patient including removing and replacing epidural. Patient states she would like to troubleshoot this epidural before removing and replacing. 3ml of 0.25% bupivacaine given via epidural and ropivacaine (epidural) rate increased from 10 ml/hr to 12 ml/hr. patient re-educated on epidural and expectations for pain management. Pt reassessed and reports pain in abdomen has resolved, still reporting some pain in her back but not as severe. VS monitored continuously and all remained stable.
[2023-08-05] MEDS: hyDROXYzine 25 mg Capsule 50 MG PO (17:12)
[2023-08-05] MEDS: acetaminophen 325 mg Tablet 650 MG PO (18:35)
[2023-08-05] MEDS: lactated ringers 1,000 ML 999 ML IV (18:39)
[2023-08-05] MEDS: citric acid-sodium citrate 30 mL UDC PO (20:24)
[2023-08-05] MEDS: famotidine 20 mg/2 mL INJ IVP (20:24)
[2023-08-05] MEDS: metoclopramide 5 mg/mL SDV 2 mL 10 MG IVP (20:24)
[2023-08-05] MEDS: ceFAZolin 2,000 MG in sodium chloride 0.9% (plus) 50 ML 100 MG IV (20:29)
--- NOTE | 2023-08-05 20:32 | P.PN_ITS ---
Subjective 2 Subjective: Ms. Benitez is a 23 year old established patient with LMP of 11/07/2022, UVALDO 08/14/2023 with EGA at 38+5, with gestational hypertension. Requested primary CD. Vitals/I&O/Wt Last Vital Signs Temp 99.4 F 08/05/23 20:30 Pulse 122 H 08/05/23 20:21 Resp 18 08/04/23 16:35 BP 117/79 08/05/23 20:21 Pulse Ox 100 08/05/23 00:12 O2 Del Method Room Air 08/04/23 22:05 08/05/23 08/05/23 08/05/23 06:59 14:59 22:59 Intake Total 1064.5 / 3086.067 218.367 / 218.367 100 / 318.367 Output Total 500 / 500 700 / 700 Balance 564.5 / 2586.067 -481.633 / -481.633 100 / -381.633 Physical Exam 2 Narrative: GA: Alert and oriented ?3. Lungs: Clear to auscultation bilaterally. Heart: Regular rhythm and rate. Abdomen: Gravid, full the height equals dates, nontender. SHIPPING INSPECTOR: SVE; dilation: 4 cm, effacement: 90%, station: 0, presentation: cepahlic, membranes: SROM. Extremities: no edema, no cyanosis, no calves pain. heart tracing: Basal rate: 160's bpm, Variability: moderate, Accelerations: present, Decelerations: absent, Contraction: q3min. Urinary Catheter Management: Tam Latex: Cath Placed During This Visit: yes Reason for Continuing Indwelling Catheter: Other Urinary Catheter Date of Insertion: 08/05/23 Urinary Catheter Time of Insertion: 00:00 Data 08/03/23 18:01 08/03/23 18:01 A&P Assessment and plan (1) Gestational hypertension without significant proteinuria during in third trimester, antepartum: Ms. Benitez is a 23 year old established patient with LMP of 11/07/2022, UVALDO 08/14/2023 with EGA at 38+3 when admitted to labor and delivery for induction due to uncontrolled gestational hypertension. Induction was started with misoprostol, after 5 misoprostol's she was started on oxytocin with slow progression. The patient now is requesting delivery. She originally wanted a primary low-transverse delivery but decided to do a trial of labor. Now she is requesting a primary low-transverse delivery, she was counseled regarding the procedure. And agree to perform the primary low- transverse delivery due to failure to progress and maternal request. heart tracing category 1. (2) Term : Plan Primary low-transverse delivery Attestations 2 Medical Necessity Statement*: In my professional opinion per admitting diagnosis Coding Level of Care Code Acute Code for Chg Fwd Diagnoses Gestational hypertension without significant proteinuria during in third trimester, antepartum O13.3 Term Z34.90
[2023-08-05] MEDS: BUPivacaine liposome 266 MG, BUPivacaine 0.25% 30 ML in sodium chloride 0.9% 50 ML 640 MG INFILTRATI (22:00)
--- NOTE | 2023-08-05 22:05 | PM.OP ---
Operative Report Date of procedure: August 05, 2023 Pre-op diagnosis: term preganancy Failure to progress Material request for delivery Post-op diagnosis: same Procedure done: Primary low-transverse delivery Surgeon: Dusty Martell MD Estimated blood loss (mL): 600 IV fluids (mL): 800 Urine output (mL): 150 Complications: None Procedure: After assuring informed consent, the patient was taken to the operating room and anesthesia was initiated. She was placed in the dorsal supine position with a left lateral tilt. The abdomen was prepped and draped in the usual sterile manner. A time-out procedure was performed. Preop antibiotics was administered. A Pfannenstiel skin incision was made with the scalpel and carried through to the underlying layer of fascia with the Bovie. The fascia was nicked in the midline and the incision extended laterally with the Pratt scissors. The superior aspect of the fascial incision was then grasped with Brad clamps and elevated and the underlying rectus muscle dissected off bluntly. Attention was then turned to the inferior aspect of the incision which, in similar fashion, was grasped and tented up with Brad clamps and the rectus muscle dissected bluntly. The rectus muscles were then in the midline and the peritoneum identified, tented up and entered sharply with Metzenbaum scissors. The peritoneal incision was then extended superiorly and inferiorly with good visualization of the bladder. The Alejandro O retractor was then inserted and the vesicouterine peritoneum identified, grasped with pickups and entered sharply with Metzenbaum scissors. Patient was referred feeling pain to the anesthesiologist gave the patient additional IV medication. Then the incision was then extended laterally and the bladder flap created digitally. The uterus incised in a low transverse fashion with the scalpel. The uterine incision was then extended. The was observed to be in OP presentation and with 2 nuchal cords noted The nuchal cords were relived then delivered in the cephalic presentation atraumatically. The nose and the mouth were suctioned with bulb and the cord clamped and cut. The cord was normal and had three vessels. Amniotic fluid was clear. The placenta was then removed manually and the uterus exteriorized and cleared of all clots and debris. The uterine incision was repaired with 0 Vicryl in a running-locked fashion. A second layer of the same suture was used to obtain excellent hemostasis. The gutters were cleared of all clots. The uterus was then returned to the abdomen. The rectus muscles were approximated with 2-0 chromic gut. The fascia was reapproximated with 0 Vicryl in an midlock running fashion. Then the adipose layer was infiltrated with Exparel. The skin was closed with Insorb?s subcuticular absorbable mae. The patient tolerated the procedure well. The sponge, lap and needle counts were correct times three.
--- NOTE | 2023-08-05 22:23 | ANE.PACU2 ---
Inpatient post-anesthesia follow up: Vital signs: Temperature 99.4 F Pulse Rate 122 Respiratory Rate 18 Blood Pressure 120/73 Pulse Oximetry 100 Oxygen Delivery Me thod Room Air Oxygen Flow Rate Fraction of Inspir ed Oxygen Hydration adequate: Yes Nausea and vomiting: No Pain level: 1 Mental status: Baseline
[2023-08-06] VITALS (20 sets, daily range): BP systolic 117–152; BP diastolic 69–97; PULSE 91–125; RESP 16; TEMP 36.8–37.4
[2023-08-06] MEDS: dextrose 5%-lactated ringers 1,000 ML 125 ML IV
[2023-08-06] MEDS: ketorolac 30 mg/mL INJ IVP (05:28)
[2023-08-06] MEDS: ferrous sulfate EC 325 mg Tablet PO ×2 (09:14→17:36)
[2023-08-06] MEDS: PRENATAL VIT NO.130/IRON/FOLIC 1 EACH TABLET PO (09:14)
[2023-08-06] MEDS: docusate sodium 100 mg Capsule PO ×2 (09:14→17:36)
[2023-08-06 10:07] LABS: Mean Corpuscular HGB Conc 32.6 g/dL (30-55); Mean Corpuscular Volume 89.1 fl (85-98); Mean Platelet Volume 10.4 fL (7.4-10.4); Platelet Count 252 10^3/cmm (157-399); Red Blood Count 3.03 10^6/uL (3.85-5.65); Red Cell Distribution Width 14.3 % (12.1-15.1); White Blood Count 18.06 10^3/uL (3.29-11.43)
--- NOTE | 2023-08-06 11:23 | P.PN_ITS ---
Subjective 2 Subjective: Mrs. Benitez 23-year-old female G1, P1 status post primary low-transverse delivery day 1. Vitals/I&O/Wt Last Vital Signs Temp 99.4 F 08/06/23 04:00 Pulse 105 H 08/06/23 08:03 Resp 16 08/06/23 04:00 BP 126/89 08/06/23 08:03 Pulse Ox 97 08/05/23 22:40 O2 Del Method Room Air 08/06/23 04:00 08/05/23 08/06/23 08/06/23 22:59 06:59 14:59 Intake Total 2191.883 / 2410.250 1550 / 3960.250 Output Total 250 / 950 1550 / 2500 Balance 1941.883 / 1460.250 0 / 1460.250 Physical Exam 2 Narrative: GA; alert and oriented x 3 HEENT: normal Breasts: engorged Nipples - skin intact Lungs; clear to auscultation Heart: regular rhythm, no murmurs. Abd: Appropriately tender. BS+. Uterine fundus below umbilicus. No Fundal Tenderness. minimal tenderness, incision clean and dry, no redness, pain or edema. Perineum: normal lochia. Extremities: no edema, no cyanosis, no tenderness. Urinary Catheter Management: Tam Latex: Cath Placed During This Visit: yes, but has since been removed by the nurse Reason for Continuing Indwelling Catheter: Other Urinary Catheter Date of Insertion: 08/05/23 Urinary Catheter Time of Insertion: 00:00 Date Urinary Catheter Removed: 08/06/23 Time Urinary Catheter Discontinued: 06:30 Data 08/06/23 09:29 08/03/23 18:01 A&P Assessment and plan (1) Status post primary low transverse section: Mrs. Amanda 23-year-old female G1, P1 is status post primary low-transverse delivery postoperative day 1. She is afebrile hemodynamically stable. Tolerating diet well. Ambulating without difficulty. Pain well under control. Plan Continue postop observation Attestations 2 Medical Necessity Statement*: In my professional opinion per admitting diagnosis Coding Level of Care Code Acute Code for Chg Fwd Diagnoses Status post primary low transverse section Z98.891
[2023-08-06] MEDS: ketorolac 30 mg/mL INJ IM ×2 (11:46→17:36)
[2023-08-07] MEDS: ibuprofen 800 mg tablet PO ×3 (01:03→15:07)
[2023-08-07] MEDS: HYDROcodone-acetaminophen 5-325 mg Tablet PO ×2 (01:03→18:11)
[2023-08-07 04:42] VITALS: BP 120/81; PULSE 93
[2023-08-07] MEDS: ferrous sulfate EC 325 mg Tablet PO (09:35)
[2023-08-07] MEDS: PRENATAL VIT NO.130/IRON/FOLIC 1 EACH TABLET PO (09:36)
[2023-08-07] MEDS: docusate sodium 100 mg Capsule PO (09:36)
[2023-08-07 09:54] VITALS: BP 127/89; PULSE 100
[2023-08-07 15:08] VITALS: BP 136/96; PULSE 108
--- NOTE | 2023-08-07 17:01 | PM.OBGYDC ---
Discharge Providers RN OFFICE Date of Admission: 08/03/23 17:33 Date of Discharge: 08/07/23 Attending Provider at Admission: Dusty Martell MD Attending Provider at Discharge: Dusty Martell MD Primary RN OFFICE: Dusty Martell MD Primary Care Provider: Mainor Abad DO Diagnoses at Discharge Discharge Diagnosis (1) Status post primary low transverse section: Status: Acute Reason for Visit Reason for Visit: induction Brief History: Mrs. Benitez is a 23 year old established patient with LMP of 11/07/2022, UVALDO 08/14/2023 based on LMP and consistent with 9 week dating ultrasound. CC: Admitted to labor and delivery for induction due to uncontrolled gestational hypertension HPI: Received appropriate care. Daily vitamins since start of care. labs have all been normal, including negative for HIV. She was found to negative for Group B Strep from screening at 36 weeks. She has gained approximately 30 lbs throughout the . Glucose tolerance screening for gestational diabetes was negative. Hospital Course Hospital Course Mrs. Benitez is a 23 year old with an estimated gestational age of 38 weeks +3 days. Admitted for induction for uncontrolled gestational hypertension. She has a slow progression of labor after mentation. She had a spontaneous rupture membranes and she dilated to 5 cm. Then she requested a delivery. A primary low-transverse delivery was performed without complications. was noted to be OP presentation and 2 nuchal cords. Postoperative observation was uneventful. She is afebrile and hemodynamically stable postoperative day 2. Pain went under control. Tolerating diet well. Ambulating without difficulty. Blood pressure within normal limits. She was counseled regarding pelvic rest for 6 weeks (no sex, no tampons, no vaginal douches). Return to the emergency room if any fever, increased bleeding or pain. Information Peripartum Data: Delivery Method: Physical Exam Narrative: GA; alert and oriented x 3 HEENT: normal Breasts: engorged Nipples - skin intact Lungs; clear to auscultation Heart: regular rhythm, no murmurs. Abd: Appropriately tender. BS+. Uterine fundus below umbilicus. No Fundal Tenderness. minimal tenderness, incision clean and dry, no redness, pain or edema. Perineum: normal lochia. Extremities: no edema, no cyanosis, no tenderness. Urinary Catheter Management: Tam Latex: Cath Placed During This Visit: yes, but has since been removed by the nurse Reason for Continuing Indwelling Catheter: Other Urinary Catheter Date of Insertion: 08/05/23 Urinary Catheter Time of Insertion: 00:00 Date Urinary Catheter Removed: 08/06/23 Time Urinary Catheter Discontinued: 06:30 History History History 1 Term 0 0 Miscarriages/Ectopic 0 Living Children 0 Discharge Data Studies Completed and Pending Laboratory Results WBC 18.06 10^3/uL (3.29-11.43) H 08/06/23 09:29 RBC 3.03 10^6/uL (3.85-5.65) L 08/06/23 09:29 Hgb 8.80 g/dL (11.27-16.99) L 08/06/23 09:29 Hct 27.0 % (36-47) L 08/06/23 09:29 MCV 89.1 fl (85-98) 08/06/23 09:29 MCH 29.0 pg (27-33) 08/06/23 09:29 MCHC 32.6 g/dL (30-55) 08/06/23 09:29 RDW 14.3 % (12.1-15.1) 08/06/23 09:29 Plt Count 252 10^3/cmm (157-399) 08/06/23 09:29 MPV 10.4 fL (7.4-10.4) 08/06/23 09:29 Neut % (Auto) 65.8 % 08/03/23 18:01 Lymph % (Auto) 27.0 % 08/03/23 18:01 [place] % (Auto) 5.4 % 08/03/23 18:01 Eos % (Auto) 0.9 % 08/03/23 18:01 Baso % (Auto) 0.2 % 08/03/23 18:01 Neut # (Auto) 6.71 10^3/uL (1.8-7.7) 08/03/23 18:01 Lymph # (Auto) 2.8 10^3/uL (0.8-4.8) 08/03/23 18:01 [place] # (Auto) 0.6 10^3/uL (0.2-0.9) 08/03/23 18:01 Eos # (Auto) 0.1 10^3/uL (0.0-0.8) 08/03/23 18:01 Baso # (Auto) 0.0 10^3/uL (0.0-0.1) 08/03/23 18:01 Nucleated RBC % (auto) 0 % 08/03/23 18: Nucleated RBCs # 0.0 /100WBC 08/03/23 18:01 Sodium 135 mmol/L (136-145) L 08/03/23 18:01 Potassium 4.5 mmol/L (3.5-5.1) 08/03/23 18: Chloride 105 mmol/L (98-107) 08/03/23 18: Carbon Dioxide 19 mmol/L (22-29) L 08/03/23 18:01 Anion Gap 15.5 (5-19) 08/03/23 18: BUN 8 mg/dL (6-20) 08/03/23 18: Creatinine 0.6 mg/dL (0.5-0.9) 08/03/23 18: GFR Calculation 123.9 mL/min (90-130) 08/03/23 18: Glucose 81 mg/dL (65-115) 08/03/23 18: Calculated Osmolality 277 mOsm/kg (285-295) L 08/03/23 18:01 Uric Acid 4.4 mg/dL (2.4-5.7) 08/03/23 18: Calcium 8.8 mg/dL (8.5-10.5) 08/03/23 18:01 Total Bilirubin 0.3 mg/dL (0.15-1.2) 08/03/23 18:01 AST 18 U/L (0-32) 08/03/23 18:01 ALT 15 U/L (0-33) 08/03/23 18:01 Alkaline Phosphatase 164 U/L (35-105) H 08/03/23 18:01 Total Protein 6.6 g/dL (6.6-8.7) 08/03/23 18:01 Albumin 3.1 g/dL (3.5-5.2) L 08/03/23 18: Globulin 3.5 g/dL (1.3-4.6) 08/03/23 18:01 Urine Color Light yellow (Yellow) 08/03/23 19:05 Urine Appearance Clear (CLEAR) 08/03/23 19:05 Urine pH 7 (5-7) 08/03/23 19:05 Ur Specific [place] 1.000 (1.005-1.030) L 08/03/23 19:05 Urine Protein Neg (Negative) 08/03/23 19:05 Urine Glucose (UA) Norm (Normal) 08/03/23 19:05 Urine Ketones Negative (Negative) 08/03/23 19:05 Urine Blood Neg (Negative) 08/03/23 19:05 Urine Nitrate Negative (Negative) 08/03/23 19:05 Urine Bilirubin Neg (Negative) 08/03/23 19:05 Urine Urobilinogen Norm mg/dL (Negative) 08/03/23 19:05 Ur Leukocyte Esterase Negative (Negative) 08/03/23 19:05 U Random Total Protein 5 mg/dL 08/03/23 19:05 Urine Creatinine 30 mg/dL (28-217) 08/03/23 19:05 Protein/Creatinin Ratio 0.17 mg/mg CR 08/03/23 19:05 Blood Type O Positive 08/03/23 18:01 Rho(D) Type Rh positive 08/03/23 18:01 Antibody Screen Negative 08/03/23 18:01 Vitals Last Vital Signs Temp 98.3 F 08/06/23 16:20 Pulse 108 H 08/07/23 15:08 Resp 16 08/06/23 04:00 BP 136/96 08/07/23 15:08 Pulse Ox 97 08/05/23 22:40 O2 Del Method Room Air 08/06/23 04:00 Results Labs OB ([facility]): Obstetrics US 06/22/23 Obstetrics US/Biophysical Profile 08/03/23 Blood Type O Positive 08/03/23 Antibody Screen Negative 08/03/23 Hct 27.0 % (36-47) L 08/06/23 Hgb 8.80 g/dL (11.27-16.99) L 08/06/23 Rho(D) Type Rh positive 08/03/23 Plt Count 252 10^3/cmm (157-399) 08/06/23 Hep Bs Antigen Non-reactive (Nonreactive) 01/12/23 Hep B Core Total Ab Non-reactive (Nonreactive) 11/04/20 Hep Bs Antibody 10.3 (11.5-1000) L 11/29/21 Hepatitis C Antibody Non-reactive (Nonreactive) 01/12/23 Rubella IgG Antibody 136.6 IU/mL (0.0-10.0) H 01/12/23 RPR Nonreactive (Nonreactive) 01/12/23 HIV 1&2 Ab & HIV 1 Ag Non-reactive (Non-Reactiv) 01/12/23 C.trachomatis RNA (TMA) Not detected (NOT DETECTED) 02/02/23 N.gonorrhoeae RNA (TMA) Not detected (NOT DETECTED) 02/02/23 T. vaginalis Amp RNA Not detected (NOT DETECTED) 02/02/23 Chlamydia/GC Comment See note 02/02/23 Gest Glucose Tolerance mg/dL 04/29/23 Hemoglobin A1c 4.4 % (4.0-6.0) 04/29/23 Uric Acid 4.4 mg/dL (2.4-5.7) 08/03/23 VZV IgG Antibody <135.00 index L 11/29/21 HCG, Qual Positive (Negative) H 01/05/23 Urine Opiates Screen Negative ng/mL (Negative) 01/12/23 Ur Barbiturates Screen Negative ng/mL (Negative) 01/12/23 Ur Phencyclidine Scrn Negative ng/mL (Negative) 01/12/23 Ur Amphetamines Screen Negative ng/mL (Negative) 01/12/23 U Benzodiazepines Scrn Negative ng/mL (Negative) 01/12/23 Urine Cocaine Screen Negative ng/mL (Negative) 01/12/23 U Marijuana (THC) Screen Negative ng/mL (Negative) 01/12/23 Micro Urine Specimen 01/12/23 Pap Smear Interpret See note 02/02/23 Discharge Plan Discharge Patient Disposition: Home Condition: Stable Prescriptions: New hydrocodone-acetaminophen 5-325 mg tablet 1 tab PO Q4H PRN (Reason: pain) Qty: 30 0RF acetaminophen 325 mg capsule 325 mg PO Q4H PRN (Reason: fever or pain) Qty: 60 0RF ferrous sulfate [Iron (ferrous sulfate)] 325 mg (65 mg iron) tablet 325 mg PO BID Qty: 60 0RF Continued [id number] 3-fat com #1 27-1-300 mg capsule 1 cap PO DAILY budesonide-formoterol 80-4.5 mcg/actuation HFA aerosol inhaler 1 inh inhalation BID Qty: 10.2 6RF albuterol sulfate 90 mcg/actuation HFA aerosol inhaler 2 puff inhalation Q6H PRN (Reason: shortness of breath or wheezing) Qty: 6.7 6RF labetalol 100 mg tablet 100 mg PO BID Qty: 30 0RF acetaminophen [Tylenol Ex Str Rapid Release] 500 mg Tablet 1,000 mg PO PRN PRN (Reason: Pain) Discharge Orders: Discharge Order (Routine); Ordered 08/07/23 Ordered By: Dusty Martell Referrals: Dusty Martell MD [Physician] - 2 weeks Discharge Diet: Usual diet Discharge Activity: Limit activity as instructed Patient Instructions: Depression (DC), Opioid Safety (DC), Preeclampsia and Eclampsia After Delivery (GEN), Hemorrhage (DC), OB Discharge Report, OB Food/Drug Interaction Guide, Opioid Safety, OB Home Care, OB Vaginal Deliveries - [facility], Abnormal Bleeding Activity Restrictions/Additional Instructions: 1. Please call [facility] on next working day to make your post-operative appointment in 2 weeks. 2. Please stay home until you come back to the clinic on first post-hospatilization check up. 3. Please follow instructions on your medications CAREFULLY. 4. If you have abdominal incision, do not cover it unless dressing is necessary because of drainage. OK to shower, but avoid bath. Leave steri-strips until they fall off. If they are still on one week after surgery, you may remove them. 5. If you had vaginal surgery or vaginal repair, Dr. Martell may instruct you to take SITZ bath. 6. Yellow, blood tinged odorous vaginal discharge is usually normal after hysterectomy or vaginal surgeries. 7. No SEXUAL INTERCOURSE, tampons, or douches until you are completely released from the post-operative care. 8. Avoid constipation by eating right and maybe using some Metamucil or Milk of Magnesia. 9. All prescription refills are given during the working hours. Please do no wait till it runs out. Call the clinic at [phone] before your medication runs out. The clinic will get in touch with your doctor to prescribe medications if necessary. 10. Please remain within 40 mile radius from our hospital because emergencies do happen now and then during the post-operative period. 11. If you have stairs at home, take one step at a time slowly and minimize the number of trips. It helps to stay in one floor for the next few days. No lifting except what you can lift by one hand until you are released from the post-operative care. 12. Driving is discouraged until you are well healed. It may be 3-4 weeks before you feel strong enough to drive. You should be able to turn and look through the rear window without pain and you should be able to push the brake pedal very hard without pain before you drive. No fast rules, but SAFETY should be your primary concern. DO NOT drive if you are on sedating medications such as narcotics. 13. Call the clinic (during working hours) to make urgent appointment or go to the Emergency room, if any of the following occurs: i. Vaginal bleeding becomes heavy, more than a period. ii. Incision becomes red and sore, or drains pus. iii. Your TEMPERATURE is over 100.4F or you have chill. iv. IV site becomes red and swollen (a little ``knot?? is usually OK) v. Persistent nausea and vomiting vi. Persistent constipation or diarrhea vii. Rash or allergic reaction to medications. Discharge Attestations RN OFFICE Time Spent in Discharge Care*: greater than 30 min Coding Level of Care Code Acute Code for Chg Fwd Diagnoses Status post primary low transverse section Z98.891
[2023-08-07 18:12] VITALS: BP 134/89; PULSE 101
[2023-08-07 18:15] VITALS: BP 134/89; PULSE 101; TEMP 36.6
== END 2023-08-07 16:25 | disposition home or self-care (01) | DRG 788 ==
LOC: OPOB 17:33 → OBGYN 17:33
PROVIDERS: Admitting Provider Obstetrics & Gynecology; PCP Family Medicine; Visit Provider Obstetrics & Gynecology
PROC: (CPT 59514; principal; 2023-08-05 20:40)
DX: O13.4 Gestational [pregnancy-induced] hypertension without significant proteinuria, complicating childbirth (principal); O69.81X0 Labor and delivery complicated by cord around neck, without compression, not applicable or unspecified; O75.89 Other specified complications of labor and delivery; J45.909 Unspecified asthma, uncomplicated; Z3A.38 38 weeks gestation of pregnancy; Z37.0 Single live birth
CPT/HCPCS: 36415; 51702; 59025; 59409; 80053; 81003; 82570; 84156; 84315; 84550; 85025; 85027; 86850; 86900; 96372; 96374; 96376; C9290; J0690; J1885; J2274; J2405; J2590; J2765; J2795; J3010; J3490; J7030; J7120; J7121

== ENCOUNTER → 2023-09-11 15:46 | Outpatient (BNVA) | payer OTHER, SELFPAY | PROVIDERS: PCP Family Medicine; Visit Provider Obstetrics & Gynecology | DX: Z30.9 Encounter for contraceptive management, unspecified (principal) | CPT/HCPCS: 81025 ==